=== PATIENT | female | born 1960 | race Hispanic/Latino ===

== ENCOUNTER 2016-10-26 15:46 | Inpatient (IN) | payer BC, OTHER ==
[2016-10-26 17:46] VITALS: BMI 38.9
[2016-10-26] MEDS ORDERED: Magnesium Hydroxide Susp 30 ml UD PO PRN (17:52)
[2016-10-26] MEDS ORDERED: Alum-Mag Hydrox-Simethicone Susp (30 mL) PO PRN (17:52)
[2016-10-26] MEDS ORDERED: Bismuth Subsalicylate 262 mg/15 ml Sus (240 ml) PO SCH (21:00)
[2016-10-26 21:25] LABS: URINE BACTERIA OCC (<OCC); URINE BILIRUBIN NEGATIVE (NEGATIVE); URINE BLOOD NEGATIVE (NEGATIVE); URINE COLOR STRAW (YELLOW); URINE GLUCOSE (UA) >=500 mg/dL (Normal); URINE KETONE 20 mg/dL (NEGATIVE); URINE LEUKOCYTE ESTERASE NEG Leu/uL (Negative); URINE PROTEIN NEGATIVE (NEGATIVE); URINE UROBILINOGEN 0.2-1.0 mg/dL (0.2-1.0); WBC URINE 1 /hpf (0-5)
[2016-10-26] MEDS ORDERED: Bismuth Subsalicylate 262 mg/15 ml Sus (240 ml) PO PRN (22:01)
[2016-10-27 07:14] LABS: HEMATOCRIT 35.7 % (34.0-47.0); MEAN CELL VOLUME 87.1 fl (81.0-99.0); MEAN CORPUSCULAR HEMOGLOBIN 28.5 pg (27.0-31.0); MEAN CORPUSCULAR HGB CONC 32.7 g/dL (33.0-37.0); RED CELL DISTRIBUTION WIDTH 14.1 % (11.5-14.5); WHITE BLOOD COUNT 6.1 K/uL (4.8-10.8)
[2016-10-27 07:49] LABS: IRON 53 ug/dL (37-170)
[2016-10-27 07:54] LABS: ALKALINE PHOSPHATASE 52 U/L (38-126); ALT/SGPT 31 U/L (9-52); AST/SGOT 26 U/L (14-36); BILIRUBIN,TOTAL 0.5 mg/dl (0.2-1.3); BLOOD UREA NITROGEN 9 mg/dl (7-17); CALCIUM 8.9 mg/dL (8.4-10.2); CARBON DIOXIDE 29 mmol/L (22-30); CHLORIDE 103 mmol/L (98-107); CHOLESTEROL 175 mg/dL (0-199); GFR AFRICAN-AMERICAN > 60; GLUCOSE,RANDOM 198 mg/dL (65-105); POTASSIUM 3.5 MMOL/L (3.6-5.0); SODIUM 141 mmol/l (132-148); TOTAL PROTEIN 6.2 G/DL (6.3-8.2)
[2016-10-27 08:14] LABS: T4 10.9 ug/dl (5.5-11.0)
[2016-10-27 08:27] LABS: THYROID STIMULATING HORMONE 0.93 mIU/ML (0.46-4.68)
--- NOTE | 2016-10-27 08:59 | PCM.PSYCH ---
Initial Psychiatric Evaluation - Initial Psychiatric Evaluation Type of Admission: Voluntary Legal Status: Capacity Chief Complaint (in patient's own words): "I overdosed on Xanax" Patient's Reaction to Hospitalization: HPI: 56 yr old, female, presents s/p suicide attempt by xanax (60 - 0.5 mg tablets) and flexeril (12 tablets), which required treatment in the ICU and intubation, now recovering medically. Patient reports that it was a suicide attempt. She thought she would be better off because that would force her ex- to take care of their blind son. She reports that stressors include pending eviction and lack of financial resources. She reports depressed mood, anxiety, insomnia, feelings of hopelessness/ helplessness. She is able to contract for safety at this time. PMx: DM, HTN, OA, Neuropathy PPHx: H/o outpatient tx w/ Abilify, Prozac, Trazodone, Concerta and Xanax for self-reported diagnoses of depression/anxiety and ADHD; patient was recetnly noncompliant with medications. . H.o multiple psychiatric hospitalizations ( 2002 x 1, 2013 x3). Suicide attempt in 2002 w/ overdose of 90 xanax pills. Psychiatrist: Dr. Natalie Aragon SHx: From [place]. High school graduated. 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 She was living on [employer] and child support, but her ex stopped paying those. Denies Etoh/ cig use. FHx: Older sister w/ depression; family h/o alcohol abuse All: NKDA Current Medications: Active Medications Generic Name Dose Route Start Last Admin Trade Name Freq PRN Reason Stop Dose Admin Acetaminophen 650 mg 10/26/16 17:52 Tylenol 325mg Tab PO Q4 PRN pain Al Hydrox/Mg Hydrox/Simethicone 30 ml 10/26/16 17:52 Maalox Plus 30 Ml PO Q4 PRN Dyspepsia Aripiprazole 10 mg 10/27/16 09:00 Abilify PO DAILY ILENE Atorvastatin Calcium 10 mg 10/27/16 09:00 Lipitor PO DAILY ILENE Bismuth Subsalicylate 524 mg 10/26/16 22:01 Pepto-Bismol PO Q4 PRN Diarrhea Fluoxetine HCl 30 mg 10/27/16 09:00 Prozac PO DAILY ILENE Lisinopril 5 mg 10/27/16 09:00 Zestril PO DAILY ILENE Lorazepam 0.5 mg 10/26/16 18:24 Ativan PO Q6 PRN Anxiety Lorazepam 0.5 mg 10/26/16 18:26 10/26/16 23:20 Ativan PO 0.5 mg HS PRN Administration Insomnia Magnesium Hydroxide 30 ml 10/26/16 17:52 Milk Of Magnesia PO HS PRN Constipation Metformin HCl 500 mg 10/27/16 09:00 Glucophage PO BID ILENE Propranolol HCl 20 mg 10/27/16 09:00 Inderal PO BID ILENE Tramadol HCl 100 mg 10/26/16 23:07 10/26/16 23:21 Ultram PO 100 mg Q6 PRN Administration Pain, severe (8-10) Trazodone HCl 100 mg 10/27/16 22:00 Desyrel PO HS ILENE Past Psychiatric History - Past Psychiatric History Previous Treatment History: Inpatient Pertinent Medical Hx (Current Medical&Sleep Prob, Allergies): Allergies Allergy/AdvReac Type Severity Reaction Status Date / Time No Known Allergies Allergy Verified 10/26/16 17:51 Alprazolam [Xanax] 0.5 mg PO BID PRN 10/26/16 Aripiprazole 10 mg PO DAILY 10/26/16 Atorvastatin [Lipitor] 10 mg PO DAILY 10/26/16 Cyclobenzaprine [Flexeril] 10 mg PO BID 10/26/16 Lisinopril [Zestril] 5 mg PO DAILY 10/26/16 Propranolol [Inderal] 20 mg PO BID 10/26/16 metFORMIN [glucOPHAGE] 500 mg PO BID 10/26/16 traMADol [Ultram] 100 mg PO Q6 PRN 10/26/16 traZODone [Desyrel] 100 mg PO HS 10/26/16 Review of Systems - Review of Systems All systems: reviewed and no additional remarkable complaints except - Psychiatric Psychiatric: As Per HPI, Abnormal Sleep Pattern, Anhedonia, Anxiety, Depression , Mood Swings, Suicidal Ideation Mental Status Examination - Personal Presentation Personal Presentation: Looks stated age, Obese - Affect Affect: Constricted - Motor Activity Motor Activity: Calm - Reliability in Providing Information Reliability in Providing Information: Good - Speech Speech: Organized - Mood Mood: Depressed, Anxious - Formal Thought Process Formal Thought Process: No Impairment - Obsessions/Compulsions Obsessions: No Compulsions: No - Cognitive Functions Orientation: Person, Place, Situation, Time Sensorium: Alert Attention/Concentration: Attentive Estimate of Intelligence: Average Judgement: Intact, as evidence by: Good judgement, Intact, as evidence by: Insight regarding need for hospitalization Memory: Recent intact, as evidence by: Ability to recall events of the day, Remote intact, as evidenced by: Abilit to recall sig. life events, Remote intact , as evidenced by: Ability to recall historical events - Risk Risk: Suicidal - Strength & Assets Inventory Strength & Assets Inventory: Cooperative - Limitations Limitations: Other (Pending eviction, financial stressors) DSM 5 DX - DSM 5 DSM 5 Diagnosis: Major Depressive Disorder, Anxiety Disorder unspecified - Recommended/Plan of Treatment Treatment Recommendations and Plan of Treatment: -Ad[facility] to [facility] -Restart Prozac 30 mg PO Daily, Trazodone 100 mg PO HS and Abilify 10 mg PO Daily -No 1:1 needed at this time as the patient contracts for safety on the unit -Individual, group and milieu tx Projected ELOS: 4-7 days Discharge Plan and Discharge Criteria: Discharge when psychiatrically stable and not an acute danger to herself - Smoking Cessation Smoking Cessation Initiated: No Reason for not providing: Not indicated
--- NOTE | 2016-10-27 13:49 | CP.PCM.CON ---
History of Present Illness - History of Present Illness History of Present Illness: 56 yo female with history of DM2 and HTN admitted to psyche unit post intubation because of intensional overdosed with Xanax and Flexeril. Review of Systems - Review of Systems All systems: reviewed and no additional remarkable complaints except (aside from those mentioned in above, 12 point system review were negative by me) Past Patient History - Past Social History Smoking Status: Never Smoked Chewing Tobacco Use: No Cigar Use: No Alcohol: None Drugs: Denies - CARDIAC Hx Hypertension: Yes - ENDOCRINE/METABOLIC Hx Diabetes Mellitus Type 2: Yes - PSYCHIATRIC Hx Substance Use: No - SURGICAL HISTORY Hx Section: Yes Hx Orthopedic Surgery: Yes - ANESTHESIA Hx Anesthesia: Yes Hx Anesthesia Reactions: No Meds Allergies/Adverse Reactions: Allergies Allergy/AdvReac Type Severity Reaction Status Date / Time No Known Allergies Allergy Verified 10/26/16 17:51 - Medications Medications: Current Medications Acetaminophen (Tylenol 325mg Tab) 650 mg PO Q4 PRN PRN Reason: pain Al Hydrox/Mg Hydrox/Simethicone (Maalox Plus 30 Ml) 30 ml PO Q4 PRN PRN Reason: Dyspepsia Aripiprazole (Abilify) 10 mg PO DAILY REPLACED BY [facility] Last Admin: 10/27/16 11:07 Dose: 10 mg Atorvastatin Calcium (Lipitor) 10 mg PO DAILY REPLACED BY [facility] Last Admin: 10/27/16 08:48 Dose: 10 mg Bismuth Subsalicylate (Pepto-Bismol) 524 mg PO Q4 PRN PRN Reason: Diarrhea Fluoxetine HCl (Prozac) 30 mg PO DAILY REPLACED BY [facility] Last Admin: 10/27/16 11:08 Dose: 30 mg Lisinopril (Zestril) 5 mg PO DAILY REPLACED BY [facility] Last Admin: 10/27/16 08:50 Dose: 5 mg Lorazepam (Ativan) 0.5 mg PO Q6 PRN PRN Reason: Anxiety Lorazepam (Ativan) 0.5 mg PO HS PRN PRN Reason: Insomnia Last Admin: 10/26/16 23:20 Dose: 0.5 mg Magnesium Hydroxide (Milk Of Magnesia) 30 ml PO HS PRN PRN Reason: Constipation Metformin HCl (Glucophage) 500 mg PO BID REPLACED BY [facility] Last Admin: 10/27/16 08:48 Dose: 500 mg Propranolol HCl (Inderal) 20 mg PO BID REPLACED BY [facility] Last Admin: 10/27/16 08:50 Dose: 20 mg Tramadol HCl (Ultram) 100 mg PO Q6 PRN PRN Reason: Pain, severe (8-10) Last Admin: 10/27/16 08:48 Dose: 100 mg Trazodone HCl (Desyrel) 100 mg PO HS ILENE Physical Exam - Constitutional Appears: No Acute Distress - Eye Exam Eye Exam: absent: Scleral icterus - ENT Exam ENT Exam: Mucous Membranes Moist - Neck Exam Neck exam: Negative for: Meningismus - Respiratory Exam Respiratory Exam: absent: Rhonchi, Wheezes, Respiratory Distress - Cardiovascular Exam Cardiovascular Exam: REGULAR RHYTHM, +S1, +S2 - GI/Abdominal Exam GI & Abdominal Exam: Soft. absent: Tenderness - Rectal Exam Rectal Exam: Deferred - Neurological Exam Neurological exam: Alert, Oriented x3 - Psychiatric Exam Psychiatric exam: Flat Affect - Skin Skin Exam: Dry, Intact Results - Vital Signs Recent Vital Signs: Last Vital Signs Temp 97.5 F L 10/26/16 22:00 Pulse 83 10/27/16 08:50 Resp 19 10/26/16 22:00 BP 130/73 10/27/16 08:50 Pulse Ox - Labs Result Diagrams: 10/27/16 05:40 10/27/16 05:40 Labs: Laboratory Results - last 24 hr 10/26/16 10/26/16 10/27/16 20:33 21:16 05:40 WBC RBC Hgb Hct MCV MCH MCHC RDW Plt Count Sodium 141 Potassium 3.5 L Chloride 103 Carbon Dioxide 29 Anion Gap 13 BUN 9 Creatinine 0.6 L Est GFR ( Amer) > 60 Est GFR (Non-Af Amer) > 60 POC Glucose (mg/dL) 233 H Random Glucose 198 H Calcium 8.9 Iron TIBC % Saturation Ferritin 93.6 Total Bilirubin 0.5 AST 26 ALT 31 Alkaline Phosphatase 52 Total Protein 6.2 L Albumin 3.1 L Globulin 3.1 Albumin/Globulin Ratio 1.0 Triglycerides 152 H Cholesterol 175 LDL Cholesterol Direct 119 HDL Cholesterol 27 L Vitamin B12 292 Free T4 Thyroxine (T4) 10.9 TSH 3rd Generation 0.93 Urine Color Straw Urine Clarity Clear Urine pH 7.0 Ur Specific [place] 1.011 Urine Protein Negative Urine Glucose (UA) >=500 Urine Ketones 20 Urine Blood Negative Urine Nitrate Negative Urine Bilirubin Negative Urine Urobilinogen 0.2-1.0 Ur Leukocyte Esterase Neg Urine Microscopic WBC 1 Ur Squamous Epith Cells 1 Urine Bacteria Occ H Urine Yeast (Budding) Few H 10/27/16 10/27/16 10/27/16 05:40 05:40 05:40 WBC 6.1 RBC 4.10 Hgb 11.7 L Hct 35.7 MCV 87.1 MCH 28.5 MCHC 32.7 L RDW 14.1 Plt Count 245 Sodium Potassium Chloride Carbon Dioxide Anion Gap BUN Creatinine Est GFR ( Amer) Est GFR (Non-Af Amer) POC Glucose (mg/dL) Random Glucose Calcium Iron 53 TIBC 282 % Saturation 19 L Ferritin Total Bilirubin AST ALT Alkaline Phosphatase Total Protein Albumin Globulin Albumin/Globulin Ratio Triglycerides Cholesterol LDL Cholesterol Direct HDL Cholesterol Vitamin B12 Free T4 2.57 H Thyroxine (T4) TSH 3rd Generation Urine Color Urine Clarity Urine pH Ur Specific [place] Urine Protein Urine Glucose (UA) Urine Ketones Urine Blood Urine Nitrate Urine Bilirubin Urine Urobilinogen Ur Leukocyte Esterase Urine Microscopic WBC Ur Squamous Epith Cells Urine Bacteria Urine Yeast (Budding) 10/27/16 05:40 WBC RBC Hgb Hct MCV MCH MCHC RDW Plt Count Sodium Potassium Chloride Carbon Dioxide Anion Gap BUN Creatinine Est GFR ( Amer) Est GFR (Non-Af Amer) POC Glucose (mg/dL) 179 H Random Glucose Calcium Iron TIBC % Saturation Ferritin Total Bilirubin AST ALT Alkaline Phosphatase Total Protein Albumin Globulin Albumin/Globulin Ratio Triglycerides Cholesterol LDL Cholesterol Direct HDL Cholesterol Vitamin B12 Free T4 Thyroxine (T4) TSH 3rd Generation Urine Color Urine Clarity Urine pH Ur Specific [place] Urine Protein Urine Glucose (UA) Urine Ketones Urine Blood Urine Nitrate Urine Bilirubin Urine Urobilinogen Ur Leukocyte Esterase Urine Microscopic WBC Ur Squamous Epith Cells Urine Bacteria Urine Yeast (Budding) Assessment & Plan (1) Suicidal overdose Status: Acute Comment: psyche is managing (2) DM2 (diabetes mellitus, type 2) Status: Chronic Comment: follow up HgA1C. BS uncontrolled. increase Metformin to 850mg PO BID (3) HTN (hypertension) Status: Chronic Comment: BP stable. continue Lisinopril and Inderal
[2016-10-27] MEDS: Insulin Lispro (humaLOG) 100 Units/ml Inj SC SCH ×2 (16:27→21:49)
[2016-10-27 22:23] LABS: FOLATE 5.3 ng/mL
[2016-10-28] MEDS: Insulin Lispro (humaLOG) 100 Units/ml Inj SC SCH ×4 (08:36→21:08)
--- NOTE | 2016-10-28 10:25 | PCM.PYCHPN ---
Psychiatric Progress Note - Psychiatric Progress Note Patient seen today, length of contact: Patient evaluated, case discussed with team, chart reviewed, 35 min Patient Chief Complaint: "I wish I weren't alive" Problems Identified/Issues Discussed: Patient reports that she wishes she weren't alive and that her suicide attempt had succeeded. She states that she would be better off . She feels like she has no choices in life and is hopeless. She denied active suicidal ideation /plan/intent and contracted for safety on the unit. She denies adverse effects to medications and reports that she was not compliant prior to her suicide attempt. Medication Change: No Medical Record Reviewed: Yes Mental Status Examination - Cognitive Function Orientation: Person, Place, Situation, Time Memory: Intact Attention: WNL Concentration: WNL Association: WNL Fund of Knowledge: WNL - Mood Mood: Depressed, Anxious - Affect Affect: Constricted - Speech Speech: Appropriate - Formal Thought Process Formal Thought Process: No Impairment Psychotic Thoughts and Behaviors: No AHl/VH/paranioa - Suicidal Ideation Suicidal Ideation: No - Homicidal Ideation Homicidal Ideation: No Goal/Treatment Plan - Goal/Treatment Plan Need for Continued Stay: Remain at risks for inpatient hospitalization, Severe depression anxiety, Discharge may exacerbated symptoms Progress Toward Problem(s) and Goals/Treatment Plan: 56 yo female presents s/p suicide attempt, continues to report that she wishes she weren't alive, but denies current suicidal ideation/plan/intent. She requires continued hospitalization for treatment and safety. -Continue Prozac 30 mg PO Daily, Trazodone 100 mg PO HS and Abilify 10 mg PO Daily -No 1:1 needed at this time as the patient contracts for safety on the unit -Individual, group and milieu tx Estimated Date of D/C: 11/02/16
--- NOTE | 2016-10-28 18:50 | CARD ---
APPROVED REPORT EKG Measurement Heart [id number] <Conclusion> Sinus rhythm with short CA Nonspecific ST abnormality Abnormal ECG
[2016-10-29] MEDS: Insulin Lispro (humaLOG) 100 Units/ml Inj SC SCH ×4 (09:38→21:05)
--- NOTE | 2016-10-29 11:10 | PCM.PYCHPN ---
Psychiatric Progress Note - Psychiatric Progress Note Patient seen today, length of contact: Patient evaluated, case discussed with team, chart reviewed, 35 min Patient Chief Complaint: "The medications are starting to work" Problems Identified/Issues Discussed: Patient reports that her mood is starting to improve and she believes the medications are starting to work. She reports that she is more hopeful for the future, since being able to speak with her friends and her son. She denied active suicidal ideation/plan/intent and contracted for safety on the unit. She denies adverse effects to medications. Medication Change: No Medical Record Reviewed: Yes Mental Status Examination - Cognitive Function Orientation: Person, Place, Situation, Time Memory: Intact Attention: WNL Concentration: WNL Association: WNL Fund of Knowledge: [facility] Decription of patient's judgement and insights: Fair I/J - Mood Mood: Depressed, Anxious - Affect Affect: Constricted - Speech Speech: Appropriate - Formal Thought Process Formal Thought Process: No Impairment Psychotic Thoughts and Behaviors: No AH/VH/paranoia - Suicidal Ideation Suicidal Ideation: No - Homicidal Ideation Homicidal Ideation: No Goal/Treatment Plan - Goal/Treatment Plan Need for Continued Stay: Remain at risks for inpatient hospitalization, Severe depression anxiety, Discharge may exacerbated symptoms Progress Toward Problem(s) and Goals/Treatment Plan: 56 yo female presents s/p suicide attempt, now reporting that her mood is starting to improve. She requires continued hospitalization for treatment and safety. -Continue Prozac 30 mg PO Daily, Trazodone 100 mg PO HS and Abilify 10 mg PO Daily -No 1:1 needed at this time as the patient contracts for safety on the unit -Individual, group and milieu tx Estimated Date of D/C: 11/03/16
[2016-10-29] MEDS: Benzocaine/Menthol (Cepacol) Lozenge PO PRN ×3 (13:18→19:31)
[2016-10-30 06:37] LABS: BASO # 0.1 K/uL (0.0-0.2); BASO % 1.2 % (0.0-2.0); EOS # 0.2 K/uL (0.0-0.7); EOS % 3.5 % (0.0-4.0); HEMATOCRIT 35.2 % (34.0-47.0); LYMPH # 2.5 K/uL (1.0-4.3); LYMPH % 39.5 % (20.0-40.0); MEAN CELL VOLUME 86.7 fl (81.0-99.0); MEAN CORPUSCULAR HEMOGLOBIN 28.4 pg (27.0-31.0); MEAN CORPUSCULAR HGB CONC 32.8 g/dL (33.0-37.0); MEAN PLATELET VOLUME 8.2 fl (7.2-11.7); MONO # 0.5 K/uL (0.0-0.8); MONO % 8.4 % (0.0-10.0); NEUT % 47.4 % (50.0-75.0); RED CELL DISTRIBUTION WIDTH 13.9 % (11.5-14.5); WHITE BLOOD COUNT 6.4 K/uL (4.8-10.8)
[2016-10-30] MEDS: Insulin NPH Human 100 Units/ml Inj SC SCH ×2 (08:50→16:14)
[2016-10-30] MEDS: Insulin Lispro (humaLOG) 100 Units/ml Inj SC SCH ×4 (08:53→21:32)
--- NOTE | 2016-10-30 09:30 | PCM.PYCHPN ---
Psychiatric Progress Note - Psychiatric Progress Note Patient seen today, length of contact: discussed with team Patient Chief Complaint: im still not sleeping Problems Identified/Issues Discussed: pt reports she is still depressed, poor sleep- has trouble falling asleep, but once asleep she sleeps through the night. she still is ambivalent about her suicide attempt- not actively thinking of killing herself, but in a sense prefers to have . she has supports working on helping her and son get housing. she denies medication side effects. pt reports that trazodone is not helping her sleep. Medication Change: Yes (dc trazodone, start remeron) Medical Record Reviewed: Yes Mental Status Examination - Cognitive Function Orientation: Person, Place, Situation, Time Memory: Intact Attention: WNL Concentration: WNL Association: WNL Fund of Knowledge: [facility] Decription of patient's judgement and insights: fair - Mood Mood: Depressed, Anxious - Affect Affect: Constricted - Speech Speech: Appropriate - Formal Thought Process Formal Thought Process: No Impairment Psychotic Thoughts and Behaviors: denies a/v hallucinations - Suicidal Ideation Suicidal Ideation: Yes Plan: passive thoughts, no plans - Homicidal Ideation Homicidal Ideation: No Goal/Treatment Plan - Goal/Treatment Plan Need for Continued Stay: Remain at risks for inpatient hospitalization, Severe depression anxiety, Discharge may exacerbated symptoms Progress Toward Problem(s) and Goals/Treatment Plan: mdd, recurrent severe without psychosis will continue current medications dc trazodone and try remeron for sleep encourage participation in groups disposition planning Estimated Date of D/C: 11/03/16
[2016-10-30] MEDS: Benzocaine/Menthol (Cepacol) Lozenge PO PRN (20:27)
[2016-10-31] MEDS: Insulin NPH Human 100 Units/ml Inj SC SCH ×2 (08:06→16:39)
[2016-10-31] MEDS: Insulin Lispro (humaLOG) 100 Units/ml Inj SC SCH ×4 (08:09→21:10)
--- NOTE | 2016-10-31 10:28 | PCM.PYCHPN ---
Psychiatric Progress Note - Psychiatric Progress Note Patient seen today, length of contact: discussed with team Patient Chief Complaint: pt is less depressed and is less anxious and sleeps better on meds Problems Identified/Issues Discussed: pt was admitted for depression and suicidal attempts. DSM 5 Symptoms Update: major depresion Medication Change: Yes (dc trazodone, start remeron) Medical Record Reviewed: Yes Mental Status Examination - Cognitive Function Orientation: Person, Place, Situation, Time Memory: Intact Attention: WNL Concentration: WNL Association: WNL Fund of Knowledge: WNL - Mood Mood: Depressed, Anxious - Affect Affect: Constricted - Speech Speech: Appropriate - Formal Thought Process Formal Thought Process: No Impairment - Suicidal Ideation Suicidal Ideation: Yes - Homicidal Ideation Homicidal Ideation: No Goal/Treatment Plan - Goal/Treatment Plan Need for Continued Stay: Remain at risks for inpatient hospitalization, Severe depression anxiety, Discharge may exacerbated symptoms Progress Toward Problem(s) and Goals/Treatment Plan: will continue to titrate abilify,prozac and remeron and engage pt in therapy and groups . Estimated Date of D/C: 11/03/16
[2016-11-01] MEDS: Insulin Lispro (humaLOG) 100 Units/ml Inj SC SCH ×4 (08:32→21:22)
[2016-11-01] MEDS: Insulin NPH Human 100 Units/ml Inj SC SCH ×2 (08:33→16:06)
[2016-11-01] MEDS: Benzocaine/Menthol (Cepacol) Lozenge PO PRN (10:12)
--- NOTE | 2016-11-01 16:25 | PCM.PYCHPN ---
Psychiatric Progress Note - Psychiatric Progress Note Patient seen today, length of contact: discussed with team Patient Chief Complaint: pt feels more depressed and tearful and worried about having no place to live.pt is able to contract for safety. Problems Identified/Issues Discussed: pt was admitted for depression and suicidal attempts. DSM 5 Symptoms Update: major depression Medication Change: Yes (will increase prozac to 40 mg daily) Medical Record Reviewed: Yes Mental Status Examination - Cognitive Function Orientation: Person, Place, Situation, Time Memory: Intact Attention: Poor Concentration: Poor Association: WNL Fund of Knowledge: WNL - Mood Mood: Depressed, Anxious - Affect Affect: Constricted - Speech Speech: Appropriate - Formal Thought Process Formal Thought Process: No Impairment - Suicidal Ideation Suicidal Ideation: No - Homicidal Ideation Homicidal Ideation: No Goal/Treatment Plan - Goal/Treatment Plan Need for Continued Stay: Remain at risks for inpatient hospitalization, Severe depression anxiety, Discharge may exacerbated symptoms Progress Toward Problem(s) and Goals/Treatment Plan: will continue to titrate abilify,prozac and remeron and increse prozac to 40 mg daily and engage pt in therapy and groups . Estimated Date of D/C: 11/03/16
[2016-11-02] MEDS: Insulin Lispro (humaLOG) 100 Units/ml Inj SC SCH ×4 (07:50→21:16)
[2016-11-02] MEDS: Insulin NPH Human 100 Units/ml Inj SC SCH ×2 (07:51→17:03)
--- NOTE | 2016-11-02 09:38 | PCM.PYCHPN ---
Psychiatric Progress Note - Psychiatric Progress Note Patient seen today, length of contact: discussed with team Patient Chief Complaint: i'm sleeping better Problems Identified/Issues Discussed: pt reports her mood is improved. she is sleeping better. now she is future oriented, but filled with appropriate worry about her and her son's living arrangement. she was hoping to move back in with her estranged , friends are not supportive of this and are also trying to arrange housing. pt denies medication side effects. Medication Change: No ( ) Medical Record Reviewed: Yes Mental Status Examination - Cognitive Function Orientation: Person, Place, Situation, Time Memory: Intact Attention: WNL Concentration: WNL Association: [facility] Fund of Knowledge: [facility] Decription of patient's judgement and insights: fair - Mood Mood: Anxious - Affect Affect: Constricted - Speech Speech: Appropriate - Formal Thought Process Formal Thought Process: No Impairment Psychotic Thoughts and Behaviors: denies a/v hallucinations - Suicidal Ideation Suicidal Ideation: No - Homicidal Ideation Homicidal Ideation: No Goal/Treatment Plan - Goal/Treatment Plan Need for Continued Stay: Remain at risks for inpatient hospitalization, Severe depression anxiety, Discharge may exacerbated symptoms Progress Toward Problem(s) and Goals/Treatment Plan: mdd, recurrent severe without psychosis will continue current medications sw to contact collaterals to help clarify pt's living situation disposition planning Estimated Date of D/C: 11/03/16
[2016-11-02] MEDS: Benzocaine/Menthol (Cepacol) Lozenge PO PRN (20:18)
[2016-11-03] MEDS: Insulin Lispro (humaLOG) 100 Units/ml Inj SC SCH ×4 (08:06→21:16)
[2016-11-03] MEDS: Insulin NPH Human 100 Units/ml Inj SC SCH ×2 (08:07→16:51)
--- NOTE | 2016-11-03 10:05 | PCM.PYCHPN ---
Psychiatric Progress Note - Psychiatric Progress Note Patient seen today, length of contact: Patient evaluated, chart reviewed, case discussed with team, 35 min Patient Chief Complaint: "I'm feeling better." Problems Identified/Issues Discussed: Patient reports that she is feeling improved. No thoughts of harming herself. She is future and goal-oriented, stating that she wants to live for her son. She denies adverse effects to medications. She reports chronic pain, which is helped with Tramadol, but otherwise has no acute complaints. Medication Change: No Medical Record Reviewed: Yes Mental Status Examination - Cognitive Function Orientation: Person, Place, Situation, Time Memory: Intact Attention: WNL Concentration: WNL Association: WNL Fund of Knowledge: [facility] Decription of patient's judgement and insights: Good I/J - Mood Mood: Neutral - Affect Affect: Broad - Speech Speech: Appropriate - Formal Thought Process Formal Thought Process: No Impairment Psychotic Thoughts and Behaviors: NO AH/VH - Suicidal Ideation Suicidal Ideation: No - Homicidal Ideation Homicidal Ideation: No Goal/Treatment Plan - Goal/Treatment Plan Need for Continued Stay: Remain at risks for inpatient hospitalization, Severe depression anxiety Progress Toward Problem(s) and Goals/Treatment Plan: 56 yo female presents s/p suicide attempt, now improved clinically, with no current ideation/plan/intent to harm herself. -Continue Prozac 40 mg PO Daily, Remeron 15 mg PO HS, and Abilify 10 mg PO Daily -Likely discharge tomorrow if the patient continues to improve clinically -Individual, group and milieu tx Estimated Date of D/C: 11/03/16 - Smoking Cessation Smoking Cessation Initiated: No Reason for not providing: Not indicated
[2016-11-04 06:02] VITALS: BP 157/87; PULSE 72; RESP 19; TEMP 97.7
[2016-11-04] MEDS: Insulin NPH Human 100 Units/ml Inj SC SCH (08:10)
[2016-11-04] MEDS: Insulin Lispro (humaLOG) 100 Units/ml Inj SC SCH ×2 (08:11→11:43)
--- NOTE | 2016-11-04 09:37 | PCM.PYCHDC ---
Mental Status Examination - Mental Status Examination Orientation: Person, Place, Situation, Time Memory: Intact Mood: Neutral Affect: Broad Speech: Appropriate Attention: WNL Concentration: WNL Association: WNL Fund of Knowledge: WNL Formal Thought Process: No Impairment Description of patient's judgement and insight: Good I/J Psychotic Thoughts and Behaviors: NO AH/VH Suicidal Ideation: No Current Homicidal Ideation?: No Discharge Summary - Discharge Note Reason for Hospitalization: HPI: 56 yr old, female, presents s/p suicide attempt by xanax (60 - 0.5 mg tablets) and flexeril (12 tablets), which required treatment in the ICU and intubation, now recovering medically. Patient reports that it was a suicide attempt. She thought she would be better off because that would force her ex- to take care of their blind son. She reports that stressors include pending eviction and lack of financial resources. She reports depressed mood, anxiety, insomnia, feelings of hopelessness/ helplessness. She is able to contract for safety at this time. PMx: DM, HTN, OA, Neuropathy PPHx: H/o outpatient tx w/ Abilify, Prozac, Trazodone, Concerta and Xanax for self-reported diagnoses of depression/anxiety and ADHD; patient was recetnly noncompliant with medications. . H.o multiple psychiatric hospitalizations ( 2003 x 1, 2014 x3). Suicide attempt in 2002 w/ overdose of 90 xanax pills. Psychiatrist: Dr. Natalie Aragon SHx: From [place]. High school graduated. 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 She was living on [employer] and child support, but her ex stopped paying those. Denies Etoh/ cig use. FHx: Older sister w/ depression; family h/o alcohol abuse All: NKDA Laboratory Data: Abnormal Lab Results 11/03/16 11/03/16 11/03/16 11:24 15:24 19:59 POC Glucose (mg/dL) 265 H 223 H 262 H 11/04/16 06:18 POC Glucose (mg/dL) 215 H Consultations:: List each consultation separately and include: 1. Reason for request. 2. Findings. 3. Follow-up Consultations: Medicine consult Summary of Hospital Course include:: 1. Description of specific treatment plan utilized for patients during their course of treatmen. 2. Summarize the time- course for resolution of acute symptoms and/or regressed behaviors. 3. Describe issues identified and worked on during hospitalization. 4. Describe medication utilized. 5. Describe medical problems identified and treated. 6. Reassessment of suicide risk Summary of Hospital Course: Patient was stabilized on Abilify 10 mg PO Daily, Prozac 40 mg PO Daily and Remeron 15 mg PO HS. She participated in individual and group therapy. She no longer reports suicidal ideation/plan/intent. - Final Diagnosis (DSM 5) Condition upon Discharge: STABLE DSM 5: Major Depressive Disorder Disposition: HOME/ ROUTINE Follow-up Treatment Plan: 56 yo female presents s/p suicide attempt, now improved clinically, with no current ideation/plan/intent to harm herself. -Continue Prozac 40 mg PO Daily, Remeron 15 mg PO HS, and Abilify 10 mg PO Daily -Discharge w/ outpatient follow-up Prescriptions/Medication Reconciliation: Aripiprazole 10 mg PO DAILY #30 Atorvastatin [Lipitor] 10 mg PO DAILY #30 FLUoxetine [Prozac] 40 mg PO DAILY #60 cap Mirtazapine [Remeron] 15 mg PO HS #30 tab traMADol [Ultram] 100 mg PO Q6 PRN #20 tab PRN Reason: Pain, Severe (8-10) - Smoking Cessation Smoking Cessation Medication prescribed: No Reason for not providing: Not indicated - Antipsychotic Medications Pt discharged on 2 or more routine antipsychotic medications: No
== END 2016-11-04 12:52 | disposition home or self-care (01) | DRG 881 ==
LOC: H.ER 15:46 → H.STEP 16:17
PROVIDERS: ADMIT Psychiatry & Neurology Psychiatry; ATTEND Psychiatry & Neurology Psychiatry
DX: F32.9 Major depressive disorder, single episode, unspecified (principal); G62.9 Polyneuropathy, unspecified; I10 Essential (primary) hypertension; T42.4X2A Poisoning by benzodiazepines, intentional self-harm, initial encounter; T48.1X2A Poisoning by skeletal muscle relaxants [neuromuscular blocking agents], intentional self-harm, initial encounter; E11.9 Type 2 diabetes mellitus without complications; F41.9 Anxiety disorder, unspecified; Y92.9 Unspecified place or not applicable; F90.9 Attention-deficit hyperactivity disorder, unspecified type; M19.90 Unspecified osteoarthritis, unspecified site